=== PATIENT | male | born 2000 | race Two or more races ===

== ENCOUNTER 2018-10-20 12:54 | Emergency (ER) | payer OTHER ==
[~2018-10-20] VITALS: Ht 165.1 cm; Wt 86.2 kg
[2018-10-20 13:17] VITALS: BP 137/81
[2018-10-20] MEDS: IBUPROFEN 800 MG TAB PO ONE (13:45)
== END 2018-10-20 14:47 | disposition home or self-care (01) ==
LOC: EDBD 12:54 → ER 12:54
DX: S50.01XA Contusion of right elbow, initial encounter (principal); V43.62XA Car passenger injured in collision with other type car in traffic accident, initial encounter; Y93.89 Activity, other specified; Y92.488 Other paved roadways as the place of occurrence of the external cause; Y99.8 Other external cause status
CPT/HCPCS: 73080